=== PATIENT | female | born 1955 | race Caucasian/White ===

== ENCOUNTER 2019-06-02 14:21 | Outpatient (CLI) | payer MEDICAID ==
[~2019-06-02] VITALS: Ht 165.1 cm; Wt 124.7 kg
[~2019-06-02 14:21] MED LIST: ALB0.5UD IH; ALBU18HF2 IH; CYCL-1 PO; ESCI-10 PO; ETAN50DI SUBCUT; FOLI1TAB16 PO; FURO40TA4 PO; HYDR-3972 PO; IBUP-1985 PO; LISI-644 PO; METH2.5T PO; POTA10CA44 PO; SPIIN IH
[2019-06-02 14:50] LABS: ABG BASE EXCESS 1.1 mmol/L (-2.0-3.0); ABG OXYGEN SATURATION 93.3 % (95-98); ABG PCO2 (T) 42.4 mmHg (35.0-45.0); ABG PH (T) 7.406 (7.350-7.450); ABG PO2 (T) 63.3 mmHg (83-108); ALLEN'S TEST Positive; FCOHb 4.5 % (0.5-1.5); FMetHb 0.1 % (0.3-1.12); TOTAL HEMOGLOBIN 15.1 G/dl (12.0-16.0)
[2019-06-02] MEDS ORDERED: albuterol 2.5 MG/3 ML nebule NEB ONE (15:25)
== END 2019-06-02 23:59 | disposition home or self-care (01) ==
LOC: RT 14:21
PROVIDERS: ATTEND Internal Medicine Cardiovascular Disease
DX: R06.02 Shortness of breath (principal); J44.9 Chronic obstructive pulmonary disease, unspecified; F17.210 Nicotine dependence, cigarettes, uncomplicated
CPT/HCPCS: 36600; 82803; 85018; 94060; 94727; 94729; 94760

== ENCOUNTER 2020-02-16 09:46 | Emergency (ER) | payer MEDICAID ==
[~2020-02-16] VITALS: Ht 162.6 cm; Wt 129.6 kg
[2020-02-16] MEDS ORDERED: MYCOL30CR TP (10:34)
[2020-02-16] MEDS ORDERED: ondansetron 4mg rapidly disintigrating tab PO ONE (10:35)
[2020-02-16] MEDS ORDERED: clindamycin 150mg capsule PO ONE (10:35)
[2020-02-16] MEDS ORDERED: ACYC400T PO (10:36)
[2020-02-16] MEDS ORDERED: CLIN150C8 PO (10:36)
--- NOTE | 2020-02-16 10:37 | NUR ---
Dr. Bailey/infectious disease MD at bedside.
--- NOTE | 2020-02-16 11:11 | NUR ---
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 stated lives in [place] and will be here in approx 30 min.
[2020-02-16 11:42] VITALS: BP 157/75
== END 2020-02-16 11:43 | disposition home or self-care (01) ==
LOC: ER 09:46
DX: B01.9 Varicella without complication (principal); N76.2 Acute vulvitis; B36.9 Superficial mycosis, unspecified; K12.0 Recurrent oral aphthae; I10 Essential (primary) hypertension; J44.9 Chronic obstructive pulmonary disease, unspecified; Z79.899 Other long term (current) drug therapy
CPT/HCPCS: 99284

== ENCOUNTER 2020-03-28 14:00 | Day surgery (SDC) | payer MEDICAID ==
[~2020-03-28 14:00] MED LIST changes: +CLIN150C8 PO; +MYCOL30CR TP
== END 2020-03-28 16:09 | disposition home or self-care (01) ==
LOC: WOUND CARE 14:00
PROVIDERS: ATTEND Nurse Practitioner
DX: B02.8 Zoster with other complications (principal); I10 Essential (primary) hypertension; J43.9 Emphysema, unspecified; M19.90 Unspecified osteoarthritis, unspecified site; K21.9 Gastro-esophageal reflux disease without esophagitis; K12.0 Recurrent oral aphthae; B36.9 Superficial mycosis, unspecified; F32.9 Major depressive disorder, single episode, unspecified; Z79.899 Other long term (current) drug therapy
CPT/HCPCS: G0463

== ENCOUNTER 2022-05-24 09:02 | Day surgery (SDC) | payer MEDICARE, MEDICAID ==
[~2022-05-24] VITALS: Ht 165.1 cm; Wt 130.9 kg
[~2022-05-24 09:02] MED LIST changes: -FOLI1TAB16 PO; +FOLI1TAB27 PO; -MYCOL30CR TP; +NYST30CR35 TP
[2022-05-24 09:17] VITALS: BP 154/85
[2022-05-24] MEDS ORDERED: fentaNYL/PF 50MCG/1 ML 2ML syringe ONE (09:17)
[2022-05-24] MEDS ORDERED: MIDAZolam 1 MG/ML 5ML VIAL ONE (09:18)
[2022-05-24] MEDS ORDERED: glucagon, human recombinant 1mg kit ONE (11:14)
[2022-05-24 11:46] VITALS: BP 173/69
[2022-05-24 11:56] VITALS: BP 146/66
[2022-05-24 12:06] VITALS: BP 147/73
[2022-05-24 12:16] VITALS: BP 139/69
== END 2022-05-24 12:35 | disposition home or self-care (01) ==
LOC: GI LAB 09:02
PROVIDERS: ATTEND Internal Medicine Gastroenterology
DX: D12.2 Benign neoplasm of ascending colon (principal); D12.3 Benign neoplasm of transverse colon; C18.4 Malignant neoplasm of transverse colon; K64.1 Second degree hemorrhoids
CPT/HCPCS: 45380; 45381; 45385; 99153; G0500; J1610; J2250; J3010; J7030; Z7512; 45335; 88305; 99152; A4620; C1889

== ENCOUNTER 2022-06-26 09:00 | Outpatient (CLI) | payer MEDICARE, MEDICAID ==
[~2022-06-26 09:00] MED LIST changes: -CLIN150C8 PO; -CYCL-1 PO; -ESCI-10 PO; -POTA10CA44 PO; +POTA10CA45 PO
[2022-06-26] MEDS ORDERED: LISI40TA13 PO (14:23)
[2022-06-26] MEDS ORDERED: POTA8CAP20 PO (14:23)
[2022-06-26] MEDS ORDERED: BUSP15TA7 PO (14:34)
[2022-06-26] MEDS ORDERED: UMEC1DIS INH (14:34)
[2022-06-26] MEDS ORDERED: AMLO5TAB16 PO (14:34)
[2022-06-26] MEDS ORDERED: ERGO500054 PO (14:34)
[2022-06-26] MEDS ORDERED: CYAN-51 PO (14:34)
[2022-06-26] MEDS ORDERED: TRAZ-251 PO (14:34)
[2022-06-26] MEDS ORDERED: NALO4SPR NAS (14:34)
[2022-06-26] MEDS ORDERED: NYST30CR34 TP (14:34)
[2022-06-26] MEDS ORDERED: CLON0.1T2 PO (14:34)
[2022-06-26] MEDS ORDERED: LEVO150T8 PO (14:34)
[2022-06-26] MEDS ORDERED: LORA10TA7 PO (14:34)
[2022-06-26] MEDS ORDERED: NALO25TA4 PO (14:34)
[2022-06-26] MEDS ORDERED: SILV20CR13 TOP (14:34)
[2022-06-26] MEDS ORDERED: BACL20TA PO (14:34)
[2022-06-26] MEDS ORDERED: DULO60CA65 PO (14:34)
[2022-06-26] MEDS ORDERED: OXYC1TAB17 PO (14:34)
[2022-06-26 15:58] LABS: BASOPHILS % (AUTO) 0.4 % (0-1); EOSINOPHILS % (AUTO) 0.6 % (0-6); LYMPHOCYTES # (AUTO) 1.1 X10'3 (1.1-4.8); LYMPHOCYTES % (AUTO) 29.5 % (21-51); MEAN CORPUSCULAR HEMOGLOBIN 34.1 PG (27.0-31.0); MEAN CORPUSCULAR HGB CONC 33.9 g/dL (33.0-36.5); MEAN CORPUSCULAR VOLUME 100.8 FL (78-98); MEAN PLATELET VOLUME 9.7 FL (7.4-10.4); MONOCYTES # (AUTO) 0.3 X10'3 (0-0.9); MONOCYTES % (AUTO) 8.6 % (2-12); NEUTROPHILS # (AUTO) 2.2 X10'3 (1.8-7.7); NEUTROPHILS % (AUTO) 60.9 % (42-75); PRE OP HEMATOCRIT 47.4 % (35.0-45.0); PRE OP HEMOGLOBIN 16.1 g/dL (12.0-16.0); PRE OP PLATELET COUNT 118 X10'3 (140-440); RED CELL DISTRIBUTION WIDTH 14.7 % (11.5-14.5)
[2022-06-26 16:23] LABS: ALBUMIN 3.7 G/DL (3.4-5.0); ALKALINE PHOSPHATASE 69 IU/L (46-116); BLOOD UREA NITROGEN 16 MG/DL (7-18); BUN/CREATININE RATIO 21.1 (6.6-38.0); CALCIUM 9.5 MG/DL (8.5-10.1); CHLORIDE 103 MMOL/L (99-107); CREATININE 0.76 MG/DL (0.40-0.90); PRE OP ALT 31 U/L (30-65); PRE OP ANION GAP 3 (8-16); PRE OP AST 25 U/L (10-37); PRE OP BILIRUB, TOTAL 0.7 MG/DL (0.0-1.0); PRE OP GLUCOSE 93 MG/DL (70-104); PRE OP POTASSIUM 4.1 MMOL/L (3.4-5.1); PRE OP SODIUM 141 MMOL/L (135-145); TOTAL CARBON DIOXIDE 35.2 MMOL/L (24-32); TOTAL PROTEIN 7.5 G/DL (6.4-8.2); eGFR 76 ML/MIN
== END 2022-06-26 23:00 | disposition home or self-care (01) ==
LOC: LAB 09:00 → EDSTATUS 07-02 08:45
PROVIDERS: ATTEND Surgery
DX: Z01.818 Encounter for other preprocedural examination (principal); C18.4 Malignant neoplasm of transverse colon
CPT/HCPCS: 36415; 71046; 80053; 84443; 85025; 86885; 86900; 86901; 87081; 93005